=== PATIENT | female | born 1970 | race Caucasian/White ===

== ENCOUNTER → 2017-04-03 | Outpatient (CLI) | payer BC, OTHER ==
[~2017-04-03] VITALS: Ht 149.9 cm; Wt 111.1 kg
[~2017-04-03] MED LIST: ALEVE220 MG PO; ATIVAN0.5 MG PO; CLONIDINE PO; DARVOCET-N 1001 EACH PO; DILTIAZEM ER360 MG PO; IBUPROFEN 400400 M2 PO; PERCOCET 5-3251 EACH PO; PROAIR HFA8.5 GM INH; TRICOR145 MG PO; XOPENEX0.63 MG/3 IH; ZETIA10 MG PO; ZOCOR 20 MG TAB20 M1 PO
--- NOTE | ~2017-04-03 | P ---
[facility] [place] [address] PROCEDURE REPORT Name: LORENZO PEACOCK Room #: REG [facility]#: [id number] Admission: 04/03/17 Attend Phys: Chris Mckinnon Discharge: Date of : 66 Report #: [id number] THIS REPORT FOR: //name// CC: Chris Damico MD DATE OF SERVICE: 04/03/2017 PROCEDURE PERFORMED: Colonoscopy with biopsies. HISTORY OF PRESENT ILLNESS: The patient is a 47-year-old female with a history of polyps in 2009. She is here for repeat colonoscopy. She does report one episode of bright red blood per rectum recently, this was not associated with abdominal pain, constipation or diarrhea. There is no family history of colon cancer. 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 Again, she denies any diarrhea. DESCRIPTION OF PROCEDURE: The risks and benefits of the procedure were explained to the patient, those risks including but not limited to bleeding, perforation, the risk of sedation. She understood these risks and gave informed consent. Sedation was given using propofol per anesthesia. Next, a digital rectal exam was initially performed, which showed small external hemorrhoids, but otherwise normal. Next, using a standard [employer] colonoscope, the scope was placed in the patient's anus and advanced under direct vision to the cecum. The overall prep was excellent. In the cecum, there was a 3 mm sessile polyp. This was removed with cold forceps, otherwise normal. The ileocecal valve was normal. The ascending, transverse and descending colon as well as sigmoid colon were all normal. In the rectum, there were two 3-4 mm sessile polyps, both removed with cold forceps. On retroflexion, small nonbleeding internal hemorrhoids were noted, otherwise normal colonoscopy. The scope was then withdrawn and the procedure terminated. The patient tolerated the procedure well. IMPRESSION: 1. Three small colonic polyps. 2. Small internal and external hemorrhoids, likely source of recent bright red blood per rectum. No evidence of bleeding. 3. Otherwise, normal colonoscopy. RECOMMENDATIONS: 1. Await biopsy results. 2. If polyps are hyperplastic, repeat in 10 years; if adenomatous polyp, repeat in 5 years. 3. Recommend high fiber diet, Analpram on a p.r.n. basis for hemorrhoids. [address] [address] PROCEDURE REPORT Name: MADONNAJEFFJADA BATRES Room #: REG [facility]#: [id number] Admission: 04/03/17 Attend Phys: Chris Mckinnon Discharge: Date of : 66 Report #: [id number] Thank you for allowing me to participate in her care. <ELECTRONICALLY SIGNED> By: Chris Tse MD 04/03/17 1400 [id number] Chris Tse MD /nt
--- NOTE | ~2017-04-03 | S ---
[facility] [place] [address] SURGICAL PATH RPT PROCEDURE Name: HUGO MAYERS Room #: REG [facility].#: [id number] Admission: 04/03/17 Date of : 66 Discharge: Report #: [id number] Path Case #: [id number] PATHOLOGY REPORT COLLECTION DATE: 04/03/2017 RECEIVED DATE: 04/03/2017 SUBMITTING PHYS: Dr. Chris Tse OTHER PHYS: Dr. Eunice Damico SPECIMEN(S) RECEIVED: A.Polyp at cecum B.Polyp at rectum x2 * * * * * * * * * * * * FINAL DIAGNOSIS: A. Polyp, at cecum, endoscopic biopsy: - Hyperplastic polyp and a lymphoid aggregate. - Negative for dysplasia. B. Polyp at rectum x2 endoscopic biopsy: - Hyperplastic polyp. - Negative for dysplasia. PATHOLOGIST: Cristal Hughes M.D. REPORT ELECTRONICALLY SIGNED BY: Cristal Hughes M.D. DATE/TIME: 04/04/2017 14:52 * * * * * * * * * * * * GROSS PATHOLOGY: A. Received in formalin labeled "Hugo Mayers, polyp at cecum," are two segments of hutchinson soft tissue measuring 0.6 x 0.3 x 0.1 cm in aggregate dimensions and ranging from 0.2 to 0.6 cm in maximum dimension. The specimen is submitted entirely in cassette A1. B. Received in formalin labeled "Hugo Mayers, polyp at rectum 2," are four segments of hutchinson soft tissue measuring 0.9 x 0.8 x 0.1 cm in aggregate dimensions and ranging from 0.2 to 0.5 cm in maximum dimension. The specimen is submitted entirely in cassette B1. (CAA; 04/03/2017) CLINICAL HISTORY: Pre-op diagnosis: History of polyps Post-op diagnosis: Colon polyps INITIAL CPT CODE(S): A; 12267 B; [address] [facility] [place] [address] SURGICAL PATH RPT PROCEDURE Name: HUGO MAYERS Room #: REG [facility].#: [id number] Admission: 04/03/17 Date of : 66 Discharge: Report #: [id number] Path Case #: [id number] Professional services performed by [facility] at [address] , [place] [address] Technical services performed by [facility] at [address] [place] [address], [facility] [address] [address]. [facility] [address] [place] [address] PHONE: [phone] DIRECTOR: Marcelino Montague M.D. * * * END OF REPORT * * *
== END | disposition home or self-care (01) ==
LOC: GI 07:33
DX: Z09 Encounter for follow-up examination after completed treatment for conditions other than malignant neoplasm (principal); K63.5 Polyp of colon; K64.8 Other hemorrhoids; K64.4 Residual hemorrhoidal skin tags; F32.9 Major depressive disorder, single episode, unspecified; F41.9 Anxiety disorder, unspecified; Z85.110 Personal history of malignant carcinoid tumor of bronchus and lung; I10 Essential (primary) hypertension; E78.00 Pure hypercholesterolemia, unspecified; Z98.890 Other specified postprocedural states
CPT/HCPCS: 62110; 62900